=== PATIENT | female | born 1990 | race African-American/Black ===

== ENCOUNTER 2019-04-17 01:42 | Inpatient (IN) ==
[2019-04-17] MEDS ORDERED: BUTORPHANOL 2 MG/ML VIAL IV PRN (01:52)
[2019-04-17] MEDS ORDERED: MEPERIDINE 50 MG/1 ML VIAL IV PRN (01:52)
[2019-04-17] MEDS ORDERED: ONDANSETRON 4 MG/2 ML VIAL IV PRN ×2 (01:52→23:01)
[2019-04-17] MEDS ORDERED: LACTATED RINGERS 1,000 ML IV SCH ×2 (02:00→09:00)
[2019-04-17] MEDS ORDERED: OXYTOCIN/LR 20 UNIT/1,000 ML BAG IV SCH (02:00)
[2019-04-17 02:15] LABS: Basophils # 0.1 10*3/uL (0.0-0.2); Basophils % 0.6 % (0.0-0.8); Eosinophils # 0.1 10*3/uL (0.0-0.87); Eosinophils % 0.7 % (0.00-10.9); Hematocrit 31.6 VOL% (35.7-47.0); Hemoglobin 9.8 GM/DL (12.0-16.0); Immature Granulocytes % 4.5 %; Immature Granulocytes Absolute 0.47 #; Lymphocytes # 1.9 10*3/uL (1.4-4.0); Lymphocytes % 18.6 % (21.3-54.2); Mean Corpuscular Volume 75.2 FL (87-102); Mean Platelet Volume 11.1 FL (9.6-12.0); Monocytes % 5.7 % (1.7-12.7); Neutrophils % 69.9 % (38.7-73.9); Platelet Count 213 T/CUMM (130-400); Red Cell Distribution Width 17.2 % (9.3-17.3); White Blood Count 10.4 T/CUMM (4-12)
[2019-04-17] MEDS ORDERED: NALOXONE 0.4 MG/ML VIAL IV PRN (08:43)
[2019-04-17] MEDS ORDERED: LACTATED RINGERS 1,000 ML IV ONE (08:43)
[2019-04-17] MEDS ORDERED: FAMOTIDINE 20 MG/2 ML VIAL IV ONE (08:43)
[2019-04-17] MEDS ORDERED: diphenhydrAMINE 50 MG/1 ML VIAL IV PRN ×2 (08:43)
[2019-04-17] MEDS ORDERED: PROMETHAZINE 25 MG/1 ML VIAL IM ONE (08:43)
[2019-04-17] MEDS ORDERED: hydrOXYzine HCL 25 MG/1 ML VIAL IM PRN (08:43)
[2019-04-17] MEDS ORDERED: CITRIC ACID/SODIUM CITRATE 30 ML UDCUP PO ONE (08:43)
[2019-04-17] MEDS ORDERED: ePHEDrine 50 MG/ML AMP IV PRN (08:43)
[2019-04-17] MEDS: fentaNYL 2 MCG/ROPIV 0.2% EPID 100 ML EPIDURAL SCH ×2 (11:24→21:10)
[2019-04-17 12:41] LABS: Apearance,Urine CLEAR (Clear); Bilirubin,Urine Negative (Negative); Blood, Urine Negative (Negative); Glucose,Urine (UA) Negative (Negative); Ketones,Urine 5 mg/dL (Negative); Mucus,Urine Occasional /LPF (Occasional); Nitrite,Urine Negative (Negative); Protein,Urine Negative; Squamous Epithelial Cell,Urine Occasional /HPF (0-10); Urine Color Yellow (Yellow); Urine Specific Gravity 1.011 (1.001-1.035); WBC,Urine <1 /HPF (0-6)
[2019-04-17] MEDS ORDERED: OXYTOCIN/LR 30 UNIT/1,000 ML BAG IV ONE (19:16)
[2019-04-17] MEDS ORDERED: CARBOPROST TROMETHAMINE 250 MCG/ML AMP IM ONE (20:09)
[2019-04-17] MEDS ORDERED: METHYLERGONOVINE 0.2 MG/1 ML AMP ONE (20:09)
[2019-04-17] MEDS ORDERED: miSOPROStoL 200 MCG TABLET ONE (20:09)
[2019-04-17 22:16] LABS: Cord Arterial Blood HCO3 18.4 MMOL/L
[2019-04-17 22:19] LABS: Cord Venous Blood PCO2 39.4 MMHG; Cord Venous Blood PO2 22.1
[2019-04-17] MEDS ORDERED: RHO(D) IMMUNE GLOBULIN 300 MCG SYRINGE IM ONE (23:01)
[2019-04-17] MEDS ORDERED: WITCH HAZEL PADS 100/JAR TOP PRN (23:01)
[2019-04-17] MEDS ORDERED: DIPH/TET/ACEL PERT BOOSTER VACCINE 0.5 ML VIAL IM ONE (23:01)
[2019-04-17] MEDS ORDERED: oxyCODONE/ACETAMINOPHEN 5-325 MG TABLET PO PRN (23:01)
[2019-04-17] MEDS ORDERED: MEASLES/MUMPS/RUBELLA VACCINE 0.5 ML VIAL SUBCUT ONE (23:01)
[2019-04-17] MEDS ORDERED: HYDROCORTISONE 2.5% RECTAL CREAM 30 GM TUBE TOP PRN (23:01)
[2019-04-17] MEDS ORDERED: OXYTOCIN/LR 20 UNIT/1,000 ML BAG IV ONE (23:01)
[2019-04-17] MEDS ORDERED: ACETAMINOPHEN 325 MG TABLET PO PRN (23:01)
[2019-04-17] MEDS ORDERED: BISACODYL 10 MG SUPP RECTAL PRN (23:01)
[2019-04-17] MEDS ORDERED: BENZOCAINE 20%/MENTHOL 0.5% SPRAY 56 GM CAN TOP PRN (23:01)
[2019-04-17] MEDS ORDERED: LANOLIN 50% CREAM 0.3 OZ TUBE TOP PRN (23:01)
[2019-04-17] MEDS: IBUPROFEN 800 MG TABLET PO PRN (23:33)
[2019-04-18] MEDS: IBUPROFEN 800 MG TABLET PO PRN ×2 (06:01→12:55)
[2019-04-18 06:05] LABS: Basophils % 0.2 % (0.0-0.8); Eosinophils % 0.1 % (0.00-10.9); Hematocrit 25.3 VOL% (35.7-47.0); Immature Granulocytes % 2.1 %; Immature Granulocytes Absolute 0.43 #; Lymphocytes # 1.7 10*3/uL (1.4-4.0); Lymphocytes % 8.1 % (21.3-54.2); Mean Corpuscular HGB Conc 31.6 GM/DL (32-36); Mean Corpuscular Volume 74.2 FL (87-102); Mean Platelet Volume 11.6 FL (9.6-12.0); Monocytes % 7.8 % (1.7-12.7); Neutrophils % 81.7 % (38.7-73.9); Platelet Count 180 T/CUMM (130-400); Red Blood Count 3.41 MC/CUMM (3.8-5.5); Red Cell Distribution Width 16.9 % (9.3-17.3); White Blood Count 20.3 T/CUMM (4-12)
[2019-04-18 06:45] LABS: Band Neutrophils 6 % (0-10); Hypochromasia 1+; Lymphocytes 6 % (20-55); Microcytosis 1+; Myelocytes 1 %; Polychromasia Slight; Segmented Neutrophils 82 % (50-85); Total Cells Counted 100
[2019-04-18 06:46] LABS: Ovalocytes Slight; Platelet Estimate Adequate; Target Cells Slight
[2019-04-18] MEDS: DOCUSATE SODIUM 100 MG CAPSULE PO SCH ×2 (10:30→21:24)
[2019-04-18] MEDS ORDERED: RHO(D) IMMUNE GLOBULIN 300 MCG SYRINGE IM ONE (18:19)
[2019-04-18] MEDS: FERROUS SULFATE 325 MG TABLET PO SCH (21:24)
[2019-04-18] MEDS: oxyCODONE/ACETAMINOPHEN 5-325 MG TABLET PO PRN (21:27)
[2019-04-19] MEDS: oxyCODONE/ACETAMINOPHEN 5-325 MG TABLET PO PRN (06:17)
[2019-04-19 07:23] VITALS: BP 101/61
[2019-04-19] MEDS: FERROUS SULFATE 325 MG TABLET PO SCH (08:19)
[2019-04-19] MEDS: DOCUSATE SODIUM 100 MG CAPSULE PO SCH (08:19)
== END 2019-04-19 13:55 | disposition home or self-care (01) | DRG 807 ==
LOC: N.LDOUT 01:42 → N.LD 01:45 → N.OB 04-18 00:14
PROVIDERS: ADMIT Obstetrics & Gynecology; ATTEND Obstetrics & Gynecology